=== PATIENT | male | born 1995 | race American Indian/Alaskan Native ===

== ENCOUNTER 2020-12-14 16:10 | Emergency (ER) | payer SELFPAY ==
[2020-12-14 17:25] VITALS: BP 133/92
== END 2020-12-14 19:25 | disposition left against medical advice (07) ==
LOC: ED 16:10
DX: Z48.02 Encounter for removal of sutures (principal); Z53.21 Procedure and treatment not carried out due to patient leaving prior to being seen by health care provider

== ENCOUNTER 2020-12-15 09:40 | Emergency (ER) | payer SELFPAY ==
--- NOTE | 2020-12-15 09:58 | Emergency Department Report ---
Suture/Staple Removal - HPI Stated Complaint: SUTURE REMOVAL Time Seen by Provider: 12/15/20 09:57 When Sutures or Karli Placed: 8-10 Days Ago Wound Location: [facility] Review of Systems ROS: Stated complaint: SUTURE REMOVAL Other details as noted in HPI Comment: All other systems reviewed and negative ED Past Medical Hx - Past Medical History Previous Medical History?: No - Surgical History Past Surgical History?: No - Family History Family history: no significant - Social History Smoking Status: Never Smoker Substance Use Type: None Suture Removal Exam - Exam General: Vital signs noted. No distress. Alert and acting appropriately. Wound: Yes Tenderness, No Pathologic Erythema, No Drainage, No Pus, No Wound Dehiscence Other Systems: All other systems reviewed and are unremarkable. ED Recheck [facility] - Core Measures Measure Exclusions: not indicated - Differential Diagnosis Suture/Staple Removal - Medical Decision Making SUTURES REMOVED WITHOUT DIFFICULTY WOUND CLEANED DRESSING APPLIED Vital Signs 12/15/20 10:00 Temperature 98.8 F Pulse Rate 92 H Respiratory 18 Rate Blood Pressure 168/109 O2 Sat by Pulse 96 Oximetry Critical care attestation.: If time is entered above; I have spent that time in minutes in the direct care of this critically ill patient, excluding procedure time. ED Disposition Clinical Impression: Visit for suture removal Disposition: DC-01 TO HOME OR SELFCARE Is pt being admited?: No Does the pt Need Aspirin: No Condition: Stable Referrals: PRIMARY CARE, [Primary Care Provider] - 3-5 Days Time of Disposition: 11:25
[2020-12-15 10:04] VITALS: BP 168/109
== END 2020-12-15 10:00 | disposition home or self-care (01) ==
LOC: ED 09:40
DX: Z48.02 Encounter for removal of sutures (principal)